=== PATIENT | female | born 1950 | race American Indian/Alaskan Native ===

== ENCOUNTER 2018-04-06 18:49 | Emergency (ER) | payer MEDICARE ==
[2018-04-06 19:29] LABS: Basophils % (Auto) 0.5 % (0.0-1.8); Eosinophils # (Auto) 0.1 K/mm3 (0.0-0.4); Eosinophils % (Auto) 1.8 % (0.0-4.3); Lymphocytes # (Auto) 2.6 K/mm3 (1.2-5.4); Lymphocytes % (Auto) 33.1 % (13.4-35.0); Mean Corpuscular HGB Conc 32 % (30-34); Mean Corpuscular Hemoglobin 23 pg (28-32); Mean Corpuscular Volume 70 fl (79-97); Monocytes # (Auto) 0.8 K/mm3 (0.0-0.8); Monocytes % (Auto) 10.7 % (0.0-7.3); Platelet Count 369 K/mm3 (140-440); Red Blood Count 3.56 M/mm3 (3.65-5.03); Red Cell Distribution Width 15.3 % (13.2-15.2)
[2018-04-06 19:36] LABS: BUN/Creatinine Ratio 18; Blood Urea Nitrogen 14 mg/dL (7-17); Calcium 9.9 mg/dL (8.4-10.2); Hemolysis Index 0
--- NOTE | 2018-04-06 23:50 | Emergency Department Report ---
ED General Adult HPI - General Chief complaint: Extremity Problem,Nontraumatic Stated complaint: LEG & FEET SWELLING Time Seen by Provider: 04/06/18 23:40 Source: patient, family, RN notes reviewed Mode of arrival: Ambulatory Limitations: Other (patient is a poor historian, may have early dementia) - History of Present Illness Initial comments: This is a 68-year-old female, unknown to this provider previously. Patient does not have a primary care doctor, and family indicate some chronic medical conditions. The patient lives by herself. She does not have a home health aide or anyone to help her out at home. She is accompanied by her daughter and granddaughter. Brought to the hospital for evaluation of nontraumatic bilateral lower extremity swelling. It has been present for 3 days as per the daughter. It is painless. It does not radiate anywhere. It has no exacerbating or relieving factors. The patient denies headache, neck pain, chest pain, abdominal pain, shortness of breath, urinary symptoms. The family denies DVT, pulmonary embolus risk factors. -: Gradual Location: left, right, lower extremity Consistency: constant Improves with: none Worsens with: none Associated Symptoms: other (as per history of present illness). denies: confusion, chest pain, cough, diaphoresis, fever/chills, headaches, loss of appetite, malaise, nausea/vomiting, rash, seizure, shortness of breath, syncope , weakness - Related Data Previous Rx's Medication Instructions Recorded Last Taken Type Furosemide [Lasix] 10 mg PO QDAY #30 tablet 04/07/18 Unknown Rx Nitrofurantoin Brooks/M-Cryst 100 mg PO Q12HR #14 capsule 04/07/18 Unknown Rx [Macrobid CAP] Allergies Allergy/AdvReac Type Severity Reaction Status Date / Time No Known Allergies Allergy Unverified 04/06/18 18:59 ED Review of Systems ROS: Stated complaint: LEG & FEET SWELLING Other details as noted in HPI Comment: All other systems reviewed and negative ED Past Medical Hx - Past Medical History Additional medical history: denies - Surgical History Additional Surgical History: - Social History Smoking Status: Never Smoker Substance Use Type: None - Medications Home Medications: Home Medications Medication Instructions Recorded Confirmed Last Taken Type Furosemide [Lasix] 10 mg PO QDAY #30 tablet 04/07/18 Unknown Rx Nitrofurantoin Brooks/M-Cryst 100 mg PO Q12HR #14 capsule 04/07/18 Unknown Rx [Macrobid CAP] ED Physical Exam - General Limitations: Other (patient is a poor historian) General appearance: alert, in no apparent distress - Head Head exam: Present: atraumatic, normocephalic - Eye Eye exam: Present: normal appearance, EOMI. Absent: nystagmus - ENT ENT exam: Present: mucous membranes moist - Neck Neck exam: Present: normal inspection, full ROM. Absent: tenderness, meningismus - Respiratory Respiratory exam: Present: normal lung sounds bilaterally. Absent: respiratory distress - Cardiovascular Cardiovascular Exam: Present: regular rate, normal rhythm, normal heart sounds. Absent: bradycardia, tachycardia, irregular rhythm, systolic murmur, diastolic murmur, rubs, gallop - GI/Abdominal GI/Abdominal exam: Present: soft, normal bowel sounds. Absent: distended, tenderness, guarding, rebound, rigid, pulsatile mass - Extremities Exam Extremities exam: Present: normal inspection, full ROM, normal capillary refill , pedal edema, other (there is no palpable cord. There is a negative Homans sign.). Absent: tenderness, calf tenderness - Back Exam Back exam: Present: normal inspection, full ROM. Absent: tenderness, CVA tenderness (R), paraspinal tenderness, vertebral tenderness - Neurological Exam Neurological exam: Present: alert (the patient is alert to name. Knows that she is at a hospital. Not sure of the month, date, year), CN II-XII intact, normal gait, other (Extraocular movements intact. Tongue midline. No facial droop. Facial sensation intact to light touch in the V1, V2, V3 distribution bilaterally. 5 and 5 strength in 4 extremities.. Sensation is intact to light touch in 4 extremities.). Absent: motor sensory deficit - Psychiatric Psychiatric exam: Present: normal affect, normal mood - Skin Skin exam: Present: warm, dry, intact, normal color. Absent: rash ED Course Vital Signs 04/06/18 04/06/18 04/06/18 18:52 22:31 22:50 Temperature 98.4 F 98.3 F Pulse Rate 92 H 77 76 Respiratory 18 21 18 Rate Blood Pressure 149/87 156/72 Blood Pressure 161/75 [Left] O2 Sat by Pulse 100 100 100 Oximetry ED Medical Decision Making - Lab Data Result diagrams: 04/06/18 19:10 04/06/18 19:10 Vital Signs 04/06/18 04/06/18 04/06/18 18:52 22:31 22:50 Temperature 98.4 F 98.3 F Pulse Rate 92 H 77 76 Respiratory 18 21 18 Rate Blood Pressure 149/87 156/72 Blood Pressure 161/75 [Left] O2 Sat by Pulse 100 100 100 Oximetry Lab Results 04/06/18 04/06/18 04/06/18 Range/Units 00:30 00:30 00:30 WBC (4.5-11.0) K/mm3 RBC (3.65-5.03) M/mm3 Hgb (10.1-14.3) gm/dl Hct (30.3-42.9) % MCV (79-97) fl MCH (28-32) pg MCHC (30-34) % RDW (13.2-15.2) % Plt Count (140-440) K/mm3 Lymph % (Auto) (13.4-35.0) % Brooks % (Auto) (0.0-7.3) % Eos % (Auto) (0.0-4.3) % Baso % (Auto) (0.0-1.8) % Lymph # (1.2-5.4) K/mm3 Brooks # (0.0-0.8) K/mm3 Eos # (0.0-0.4) K/mm3 Baso # (0.0-0.1) K/mm3 Seg Neutrophils % (40.0-70.0) % Seg Neutrophils # (1.8-7.7) K/mm3 PT 12.8 (12.2-14.9) Sec. INR 0.92 (0.87-1.13) APTT 27.9 (24.2-36.6) Sec. Sodium (137-145) mmol/L Potassium (3.6-5.0) mmol/L Chloride (98-107) mmol/L Carbon Dioxide (22-30) mmol/L Anion Gap mmol/L BUN (7-17) mg/dL Creatinine (0.7-1.2) mg/dL Estimated GFR ml/min BUN/Creatinine Ratio % Glucose (65-100) mg/dL Calcium (8.4-10.2) mg/dL Magnesium 2.00 (1.7-2.3) mg/dL Total Bilirubin 1.00 (0.1-1.2) mg/dL Direct Bilirubin < 0.2 (0-0.2) mg/dL Indirect Bilirubin 0.8 mg/dL AST 24 (5-40) units/L ALT 17 (7-56) units/L Alkaline Phosphatase 66 (35-129) units/L NT-Pro-B Natriuret Pep 339.9 (0-900) pg/mL Total Protein 6.9 (6.3-8.2) g/dL Albumin 4.0 (3.9-5) g/dL Albumin/Globulin Ratio 1.4 % TSH 3.270 (0.270-4.200) mlU/mL Urine Color (Yellow) Urine Turbidity (Clear) Urine pH (5.0-7.0) Ur Specific [place] (1.003-1.030) Urine Protein (Negative) mg/dL Urine Glucose (UA) (Negative) mg/dL Urine Ketones (Negative) mg/dL Urine Blood (Negative) Urine Nitrite (Negative) Urine Bilirubin (Negative) Urine Urobilinogen (<2.0) mg/dL Ur Leukocyte Esterase (Negative) Urine WBC (Auto) (0.0-6.0) /HPF Urine RBC (Auto) (0.0-6.0) /HPF U Epithel Cells (Auto) (0-13.0) /HPF Urine Bacteria (Auto) (Negative) /HPF Urine Mucus /HPF 04/06/18 04/06/18 04/07/18 Range/Units 19:10 19:10 01:15 WBC 7.9 (4.5-11.0) K/mm3 RBC 3.56 L (3.65-5.03) M/mm3 Hgb 8.0 L (10.1-14.3) gm/dl Hct 25.0 L (30.3-42.9) % MCV 70 L (79-97) fl MCH 23 L (28-32) pg MCHC 32 (30-34) % RDW 15.3 H (13.2-15.2) % Plt Count 369 (140-440) K/mm3 Lymph % (Auto) 33.1 (13.4-35.0) % Brooks % (Auto) 10.7 H (0.0-7.3) % Eos % (Auto) 1.8 (0.0-4.3) % Baso % (Auto) 0.5 (0.0-1.8) % Lymph # 2.6 (1.2-5.4) K/mm3 Brooks # 0.8 (0.0-0.8) K/mm3 Eos # 0.1 (0.0-0.4) K/mm3 Baso # 0.0 (0.0-0.1) K/mm3 Seg Neutrophils % 53.9 (40.0-70.0) % Seg Neutrophils # 4.3 (1.8-7.7) K/mm3 PT (12.2-14.9) Sec. INR (0.87-1.13) APTT (24.2-36.6) Sec. Sodium 140 (137-145) mmol/L Potassium 4.2 (3.6-5.0) mmol/L Chloride 100.9 (98-107) mmol/L Carbon Dioxide 25 (22-30) mmol/L Anion Gap 18 mmol/L BUN 14 (7-17) mg/dL Creatinine 0.8 (0.7-1.2) mg/dL Estimated GFR > 60 ml/min BUN/Creatinine Ratio 18 % Glucose 127 H (65-100) mg/dL Calcium 9.9 (8.4-10.2) mg/dL Magnesium (1.7-2.3) mg/dL Total Bilirubin (0.1-1.2) mg/dL Direct Bilirubin (0-0.2) mg/dL Indirect Bilirubin mg/dL AST (5-40) units/L ALT (7-56) units/L Alkaline Phosphatase (35-129) units/L NT-Pro-B Natriuret Pep (0-900) pg/mL Total Protein (6.3-8.2) g/dL Albumin (3.9-5) g/dL Albumin/Globulin Ratio % TSH (0.270-4.200) mlU/mL Urine Color Yellow (Yellow) Urine Turbidity Hazy (Clear) Urine pH 7.0 (5.0-7.0) Ur Specific [place] 1.006 (1.003-1.030) Urine Protein <15 mg/dl (Negative) mg/dL Urine Glucose (UA) Neg (Negative) mg/dL Urine Ketones Neg (Negative) mg/dL Urine Blood Sm (Negative) Urine Nitrite Neg (Negative) Urine Bilirubin Neg (Negative) Urine Urobilinogen < 2.0 (<2.0) mg/dL Ur Leukocyte Esterase Lg (Negative) Urine WBC (Auto) 24.0 H (0.0-6.0) /HPF Urine RBC (Auto) 5.0 (0.0-6.0) /HPF U Epithel Cells (Auto) 2.0 (0-13.0) /HPF Urine Bacteria (Auto) 1+ (Negative) /HPF Urine Mucus Few /HPF - EKG Data -: EKG Interpreted by [facility] EKG shows normal: sinus rhythm, axis, intervals, QRS complexes, ST-T waves - EKG Data When compared to previous EKG there are: previous EKG unavailable - Radiology Data Radiology results: report reviewed, image reviewed X-ray of the chest is negative for acute disease - Medical Decision Making Differential diagnosis, including but not limited to: Undiagnosed dementia, peripheral edema, DVT Assessment and plan: 68-year-old female with a primary complaint of lower extremity swelling that is nontraumatic and unprovoked, with no DVT risk factors. The patient lives by herself. She is a poor historian, walks with a steady gait and has an unremarkable physical exam with the exception of lower extremity edema. The patient presented after hours, and there is no vascular lab available to perform ultrasound to exclude DVT. Given his advanced age, patient would not benefit from empiric anticoagulation given that she is a fall risk. The patient is going to be discharged with a prescription for Lasix, Macrobid for presumed urinary tract infection, she will need to follow up as an outpatient for DVT study, incidental laboratory abnormalities are noted including mild asymptomatic microcytic anemia. In addition, case management consult has been placed. I explained to the daughter that she would have to take the patient home with her, and coordinate with case management. The patient does not have any objective medical decision at this time requires hospitalization or further observation. Critical care attestation.: If time is entered above; I have spent that time in minutes in the direct care of this critically ill patient, excluding procedure time. ED Disposition Clinical Impression: Edema, Microcytic anemia Disposition: - TO HOME OR SELFCARE Is pt being admited?: No Does the pt Need Aspirin: No Condition: Stable Instructions: Leg Edema (ED), Dementia (ED) Additional Instructions: Take medications as directed. Contact the ultrasound appointment at [phone] to ar range outpatient lower extremity ultrasound. Patient's laboratory studies demonstrated incidental abnormalities, including mild anemia, and she was also noted to have elevated pressure in the emergency room. The patient should follow-up with an outpatient primary care doctor within the next month. Return to the ER right away with the pain, worsening pain, migration of pain, fevers, chills, lethargy, irritability, projectile vomiting, change in mental status, confusion, inability to tolerate liquid feeds. The patient should remain with family until contacted by case management,. Referrals: PRIMARY CARE, [Primary Care Provider] - 3-5 Days CODY EDWARDS MD [Staff Physician] - 3-5 Days [facility] [Provider Group] - 3-5 Days
--- NOTE | 2018-04-07 00:43 | XRay Report ---
FINAL REPORT EXAM: XR CHEST ROUTINE 2V HISTORY: chf TECHNIQUE: 2 views of the chest. PRIORS: None. FINDINGS: The cardiomediastinal silhouette appears normal. The lungs are clear. The bones and soft tissues are unremarkable. IMPRESSION: No evidence of acute cardiopulmonary disease
[2018-04-07 00:47] LABS: Alanine Aminotransferase 17 units/L (7-56)
[2018-04-07 00:49] LABS: INR 0.92 (0.87-1.13)
[2018-04-07 00:50] LABS: Partial Thromboplastin Time 27.9 Sec. (24.2-36.6)
[2018-04-07 00:54] LABS: Bilirubin,Direct < 0.2 mg/dL (0-0.2)
[2018-04-07 01:37] LABS: Bacteria,Urine 1+ /HPF (Negative); Bilirubin,Urine NEG (Negative); Blood,Urine SM (Negative); Color,Urine Yellow (Yellow); Mucus,Urine FEW /HPF; Protein,Urine <15 mg/dL mg/dL (Negative); Urobilinogen,Urine < 2.0 mg/dL (<2.0)
[2018-04-07 02:42] VITALS: BP 167/71
== END 2018-04-07 02:59 | disposition home or self-care (01) ==
LOC: ED 18:49
DX: R60.0 Localized edema (principal); D50.9 Iron deficiency anemia, unspecified
CPT/HCPCS: 36415; 71046; 80048; 80074; 81001; 83735; 83880; 84443; 85025; 85610; 85730; 93005; 93010

== ENCOUNTER 2019-07-11 00:28 | Emergency (ER) | payer MEDICARE ==
[~2019-07-11 00:28] MED LIST: ADRENALIN ONE
--- NOTE | 2019-07-11 00:51 | Emergency Department Report ---
ED CPR HPI - General Stated Complaint: CARDIAC ARREST Time Seen by Provider: 07/11/19 00:37 Source: EMS - History of Present Illness Initial Comments: 69 yo F with past medical history of schizophrenia, CHF brought to ED by EMS in cardiac arrest. Family states at 11:45, pt began to complain that she was hot. Daughter states she attempted to give her some water, but pt then became unresponsive. Upon EMS arrival, pt was pulseless and apneic, with rhythm of asystole. Pt was given Epi x 3, Mayco tube placed. Pt in EMS care for approx 25 minutes. Complaint: stopped breathing Place: home Bystander CPR Performed: No Initial Findings in the Field: unresponsive, no respirations, no pulse ROSC in the Field: No Associated Injuries: No Treatments Prior to Arrival: other airway device (mayco tube), chest compressions, epinephrine mgs # (3) - Related Data Previous Rx's Medication Instructions Recorded Last Taken Type Furosemide [Lasix] 10 mg PO QDAY #30 tablet 04/07/18 Unknown Rx Nitrofurantoin [place]/M-Cryst 100 mg PO Q12HR #14 capsule 04/07/18 Unknown Rx [Macrobid CAP] Acetaminophen/Codeine [Tylenol 1 tab PO Q6H PRN #12 tab 06/21/19 Unknown Rx /Codeine # 3 tab] Allergies Allergy/AdvReac Type Severity Reaction Status Date / Time No Known Allergies Allergy Verified 06/21/19 16:36 ED Review of Systems ROS: Stated complaint: CARDIAC ARREST Other details as noted in HPI Comment: Unobtainable due to pts medical conditions ED Past Medical Hx - Past Medical History Hx Psychiatric Treatment: Yes (bipolar, schizo) Hx Dementia: Yes Additional medical history: denies - Surgical History Additional Surgical History: - Social History Smoking Status: Never Smoker Substance Use Type: None - Medications Home Medications: Home Medications Medication Instructions Recorded Confirmed Last Taken Type Furosemide [Lasix] 10 mg PO QDAY #30 tablet 04/07/18 Unknown Rx Nitrofurantoin [place]/M-Cryst 100 mg PO Q12HR #14 capsule 04/07/18 Unknown Rx [Macrobid CAP] Acetaminophen/Codeine [Tylenol 1 tab PO Q6H PRN #12 tab 06/21/19 Unknown Rx /Codeine # 3 tab] ED Physical Exam - General General appearance: other (appears cachectic) - Head Head exam: Present: atraumatic, normocephalic - Eye Pupils: Present: other (fixed and dilated) - ENT ENT exam: Present: other (Mayco tube in place; when removed, blood in posterior oropharynx) - Neck Neck exam: Present: normal inspection - Respiratory Respiratory exam: Present: other (no spontaneous breaths) - Cardiovascular Cardiovascular Exam: Present: other (no palpable pulse) - GI/Abdominal GI/Abdominal exam: Absent: distended - Extremities Exam Extremities exam: Present: other (swelling present BLE) - Neurological Exam Neurological exam: Present: other (GCS=3) - Skin Skin exam: Present: warm, dry ED Medical Decision Making - Medical Decision Making Presented to ED in cardiac arrest with rhythm of asystole. Mayco tube was removed and pt was intubated. ACLS continued. Please see nurse's note for details. At this point, pt has been down for a total of 45 minutes. No return of circulation. Time of was called at 12:33 AM. Family notified. - Differential Diagnosis arrythmia, ACS, aortic dissection, PE Critical care attestation.: If time is entered above; I have spent that time in minutes in the direct care of this critically ill patient, excluding procedure time. ED Disposition Clinical Impression: Cardiac arrest Disposition: DC-20 Is pt being admited?: No Condition: Stable Referrals: PRIMARY CARE, [Primary Care Provider] - 3-5 Days Time of Disposition: 00:56
== END 2019-07-11 07:02 ==
LOC: ED 00:28
DX: I46.9 Cardiac arrest, cause unspecified (principal); F31.9 Bipolar disorder, unspecified; F20.9 Schizophrenia, unspecified; Z79.899 Other long term (current) drug therapy
CPT/HCPCS: 99285; J0171